=== PATIENT | female | born 1955 | race Caucasian/White ===

== ENCOUNTER → 2016-08-09 | Outpatient (CLI) | payer OTHER ==
[~2016-08-09] MED LIST: AZIT500T2 PO; BENZ100 PO; GUAI1LIQ13 PO; NAPR500T PO
[2016-08-09 07:16] LABS: MEAN CELL VOLUME 90.9 FL (80.0-100.0); MEAN CORPUSCULAR HGB CONC 34.1 % (32.0-36.0); PLATELET COUNT 187 TH/MM3 (150-450); RED BLOOD COUNT 4.62 MIL/MM3 (4.00-5.30); RED CELL DISTRIBUTION WIDTH 13.7 % (11.6-17.2); REVIEW FLAG FINAL; WHITE BLOOD COUNT 4.1 TH/MM3 (4.0-11.0)
[2016-08-09 07:37] LABS: BICARBONATE 25.3 MEQ/L (21.0-32.0); POTASSIUM 4.5 MEQ/L (3.5-5.1); RHEUMATOID FACTOR TRIGGER LESS THAN 10.0 IU/ML (0.0-14.9)
[2016-08-09 07:46] LABS: HDL CHOLESTEROL 67.1 MG/DL (40.0-60.0)
[2016-08-10 13:12] LABS: ANA SCREEN NEG (NEG)
== END ==
LOC: CLAB 06:51
PROVIDERS: ATTEND Family Medicine
DX: R63.5 Abnormal weight gain (principal); K64.9 Unspecified hemorrhoids; R19.7 Diarrhea, unspecified; M79.641 Pain in right hand; Z13.1 Encounter for screening for diabetes mellitus; Z11.59 Encounter for screening for other viral diseases; Z13.220 Encounter for screening for lipoid disorders
CPT/HCPCS: 36415; 80048; 80061; 84443; 85027; 86038; 86430; 86803

== ENCOUNTER → 2016-08-31 | Outpatient (CLI) | payer OTHER ==
[2016-08-31 15:48] LABS: HEMOGLOBIN A1a 1.4 %; HEMOGLOBIN A1b 1.7 %; HEMOGLOBIN Ao 84.6 %; HEMOGLOBIN LA1C 1.9 %; HEMOGLOBIN P3 3.6 %
== END ==
LOC: CLAB 07:44
PROVIDERS: ATTEND Family Medicine
DX: R73.09 Other abnormal glucose (principal)
CPT/HCPCS: 36415; 83036

== ENCOUNTER → 2016-12-07 | Outpatient (CLI) | payer OTHER ==
[2016-12-07 10:40] LABS: RHEUMATOID FACTOR TRIGGER LESS THAN 10.0 IU/ML (0.0-14.9)
== END ==
LOC: CLAB 08:38
PROVIDERS: ATTEND Internal Medicine Rheumatology
DX: M06.4 Inflammatory polyarthropathy (principal)
CPT/HCPCS: 36415; 85652; 86140; 86200; 86430

== ENCOUNTER → 2017-02-25 | Outpatient (CLI) | payer OTHER ==
[~2017-02-25] MED LIST changes: -NAPR500T PO; +NAPR500T2 PO
== END ==
LOC: CLAB 10:06
PROVIDERS: ATTEND Internal Medicine Rheumatology
DX: M05.89 Other rheumatoid arthritis with rheumatoid factor of multiple sites (principal)
CPT/HCPCS: 36415; 85652; 86140

== ENCOUNTER → 2017-04-16 | Outpatient (CLI) | payer OTHER ==
[2017-04-16 09:01] LABS: ALBUMIN 4.1 GM/DL (3.4-5.0); AST (GOT) 19 U/L (15-37); BICARBONATE 23.5 MEQ/L (21.0-32.0); BLOOD UREA NITROGEN 17 MG/DL (7-18); CALCIUM 9.1 MG/DL (8.5-10.1); CHLORIDE 110 MEQ/L (98-107); CREATININE 1.08 MG/DL (0.50-1.00); GLOMERULAR FILTRATION RATE 52 ML/MIN (>89); GLUCOSE,FASTING 93 MG/DL (74-99); SODIUM (NA) 142 MEQ/L (136-145)
[2017-04-16 09:02] LABS: ALT (GPT) 28 U/L (10-53); CHOLESTEROL 210 MG/DL (120-200)
[2017-04-16 09:05] LABS: ALKALINE PHOSPHATASE 62 U/L (45-117); HDL CHOLESTEROL 59.9 MG/DL (40.0-60.0); LDL CHOLESTEROL 116 MG/DL (0-99); TOTAL BILIRUBIN ADULT 1.1 MG/DL (0.2-1.0); TOTAL PROTEIN 7.2 GM/DL (6.4-8.2); TRIGLYCERIDES 169 MG/DL (42-150)
[2017-04-16 11:12] LABS: HEMOGLOBIN A1C 5.8 % (4.3-6.0)
== END ==
LOC: CLAB 08:05
PROVIDERS: ATTEND Family Medicine
DX: R73.03 Prediabetes (principal); Z68.28 Body mass index [BMI] 28.0-28.9, adult
CPT/HCPCS: 36415; 80053; 80061; 83036

== ENCOUNTER → 2017-07-08 | Outpatient (CLI) | payer OTHER | LOC: CLAB 07:12 | PROVIDERS: ATTEND Internal Medicine Rheumatology | DX: M06.4 Inflammatory polyarthropathy (principal) | CPT/HCPCS: 36415; 85652; 86140 ==

== ENCOUNTER 2017-07-16 07:15 | Emergency (ER) | payer OTHER ==
[~2017-07-16] VITALS: Ht 149.9 cm; Wt 64.0 kg
[2017-07-16 07:17] VITALS: BP 117/59; PULSE 85; RESP 16; TEMP 97.7; O2SAT 98
[2017-07-16] MEDS ORDERED: IBUPROFEN 800 MG TAB PO ONE (07:45)
--- NOTE | 2017-07-16 07:59 | RADRPT ---
EXAM DATE/TIME: 07/16/2017 07:48 [place] COMPARISON: No previous studies available for comparison. INDICATIONS : Fall/rolling injury. Right distal foot pain. MEDICAL HISTORY : None. SURGICAL HISTORY : None. ENCOUNTER: Initial ACUITY: 1 day PAIN SCORE: 10/10 LOCATION: Right foot, 2nd-4th MTPJ FINDINGS: Three view examination of the right foot demonstrates no soft tissue swelling, dislocation, or fractu re. The tarsal bones appear intact. The interphalangeal and metatarsophalangeal joints are intact. The calcaneus is intact. Bony mineralization is normal. CONCLUSION: 1. No acute fracture or dislocation. Elfego Ulloa MD on July 16, 2017 at 7:56 Board Certified Radiologist. This report was verified electronically.
[2017-07-16] MEDS ORDERED: IBUP1TAB7 PO (08:31)
--- NOTE | 2017-07-16 08:32 | PD ---
HPI Chief Complaint: Injury Time Seen by Provider: 07:27 Travel History International Travel<30 days: No Contact w/Intl Traveler<30days: No Traveled to known affect area: No History of Present Illness HPI 61-year-old female presents to the emergency department with complaint of right foot pain after slipping and falling on a wet floor here at [place]. 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 Denies chest pain, shortness of breath, abdominal pain, lightheadedness, dizziness, headache. Denies hitting her head or loss of consciousness. Denies anticoagulant therapy. Ambulated on the affected extremity after the fall, did a job up on the eighth for, and then walked to the ER for evaluation. Rates pain 10/10. Has not taken any medication or tried treatments to alleviate her symptoms. Worse with walking and palpation. Better at rest. Primary care provider is Dr. Jahaira Jackson. No known allergies. History of artery, osteoarthritis, CKD. Has no other medical complaints. No other modifying factors or associated signs and symptoms. PFSH Past Medical History Arthritis: Yes (RA, OA) Asthma: No Blood Disorders: No Heart Rhythm Problems: No Cancer: No Cardiovascular Problems: No High Cholesterol: No Chest Pain: No Congestive Heart Failure: No COPD: No Cerebrovascular Accident: No Diabetes: No Diminished Hearing: No Endocrine: No GERD: No Glaucoma: No Genitourinary: No Headaches: No Hepatitis: No Hiatal Hernia: No Herniated Disk: Yes (lumbar) Hypertension: No Immune Disorder: No Kidney Stones: No Musculoskeletal: No Neurologic: No Psychiatric: No Reproductive: No Respiratory: No Migraines: No Myocardial Infarction: No Renal Failure: No Seizures: No Sleep Apnea: No Thyroid Disease: No Ulcer: No Past Surgical History Abdominal Surgery: No Appendectomy: No Cardiac Surgery: No Cholecystectomy: Yes Ear Surgery: No Endocrine Surgery: No Eye Surgery: No Genitourinary Surgery: No Gynecologic Surgery: No Oral Surgery: No Pacemaker: No Thoracic Surgery: No Other Surgery: Yes (Neck Fusion 1991) Social History Alcohol Use: No Tobacco Use: No Substance Use: No Allergies-Medications (Allergen,Severity, Reaction): Coded Allergies: No Known Allergies (Verified Adverse Reaction, Unknown, 07/16/17) Reported Meds & Prescriptions Reported Meds & Active Scripts Active Walker/Adult/Folding (Device) 1 Mis Mis Ea .XX DIRECTED Ibuprofen 800 Mg Tab 800 Mg PO Q6HR PRN Review of Systems Except as stated in HPI: all other systems reviewed are Neg Physical Exam Narrative GENERAL: Well-nourished, well-developed femur patient, in no acute distress SKIN: Warm and dry. HEAD: Atraumatic. Normocephalic. EYES: Pupils equal and round. No scleral icterus. No injection or drainage. ENT: Mucosa pink and moist. Airway patent. NECK: Trachea midline. CARDIOVASCULAR: Regular rate. RESPIRATORY: No accessory muscle use. GASTROINTESTINAL: Flat. MUSCULOSKELETAL: Right foot without erythema, edema, ecchymosis; tenderness on palpation to the distal metatarsal region of the second, third, fourth toe; no obvious deformity. Right lower extremity supple and nontender with 2+ radial pulse and sensory intact without erythema or edema. No obvious deformities. No clubbing. No cyanosis. No edema. NEUROLOGICAL: Awake and alert. Oriented 3. No obvious cranial nerve deficits. Motor grossly within normal limits. Normal speech. PSYCHIATRIC: Appropriate mood and affect; insight and judgment normal. Data Data Last Documented VS Vital Signs Date Time Temp Pulse Resp B/P (MAP) Pulse Ox O2 Delivery O2 Flow Rate FiO2 07/16/17 07:17 97.7 85 16 117/59 (78) 98 Orders Orders Foot, Complete ([id number]) (07/16/17 07:31) Crutches (07/16/17 07:31) Ibuprofen (Motrin) (07/16/17 07:45) Ed Discharge Order (07/16/17 08:32) Splint Or Brace Apply/Monitor (07/16/17 08:32) [facility] Medical Decision Making Medical Screen Exam Complete: Yes Emergency Medical Condition: Yes Medical Record Reviewed: Yes Differential Diagnosis Foot sprain, foot fracture, foot injury Narrative Course 61-year-old female, [employer] employee, with right foot injury. Right foot x-ray ordered. Ibuprofen administered in the ER. Right foot x-ray concluded: Foot X-Ray 07/16/17730 Signed Impressions: Service Date/Time: Sunday, July 16, 2017 07:48 - CONCLUSION: 1. No acute fracture or dislocation. Elfego Ulloa MD Discussed x-ray findings with the patient. Patient attempted to use crutches and was unable to do so. We attempted to get a walker for the patient through case management and because it is a Workmen's Comp. claim we were unable to obtain a walker. We offered the patient a wheelchair escort to her vehicle and she declined. Patient was given a prescription for a walker and ibuprofen. Jet bandage provided for support. Instructed patient to follow-up with human resources for Workmen's Comp. follow-up. Instructed patient to follow up with primary care provider. Patient verbalizes understanding and agreement with treatment plan. Patient is medically cleared and stable for discharge. Discussed reasons to return to the emergency department. Patient agrees with treatment plan. The patients vital signs are stable and the patient is stable for outpatient follow-up and treatment. Patient discharged home, stable and in no acute distress. Diagnosis Primary Impression: Right foot injury Qualified Codes: S99.921A - Unspecified injury of right foot, initial encounter Referrals: Lynsey ([facility] [place]) Human Resources [employer] Worker Primary Care Physician Patient Instructions: Foot Sprain (ED), General Instructions Additional Instructions: Tylenol or ibuprofen as directed and as needed for pain and inflammation Rest, ice, compress, and elevate extremity to decrease pain and inflammation Jet bandage for compression and support Crutches for support Avoid aggravating activity; increase activity as tolerated Follow-up with primary care provider Follow-up with application chemist as needed Return to the emergency department immediately with worsening of symptoms Med/Other Pt SpecificInfo: Prescription(s) given Scripts Walker/Adult/Folding (Walker/Adult/Folding) 1 Mis Mis EA .XX DIRECTED, #1 0 Refills Prov: Kenzie Lehman 07/16/17 Ibuprofen (Ibuprofen) 800 Mg Tab 800 MG PO Q6HR Y for PAIN, #30 TAB 0 Refills Prov: Kenzie Lehman 07/16/17 Disposition: DISCHARGE HOME Condition: Stable Kenzie Lehman Jul 16, 2017 08:31
[2017-07-16] MEDS ORDERED: WALKER/ADULT/FO1 MIS (08:47)
== END 2017-07-16 09:20 | disposition home or self-care (01) ==
LOC: NEPD 07:15
DX: S99.921A Unspecified injury of right foot, initial encounter (principal); W01.0XXA Fall on same level from slipping, tripping and stumbling without subsequent striking against object, initial encounter; Y92.239 Unspecified place in hospital as the place of occurrence of the external cause
CPT/HCPCS: 73630; 99283; E0113

== ENCOUNTER → 2017-09-02 | Outpatient (CLI) | payer OTHER ==
[~2017-09-02] MED LIST changes: -AZIT500T2 PO; -BENZ100 PO; -GUAI1LIQ13 PO; +IBUP1TAB7 PO; -NAPR500T2 PO; +WALKER/ADULT/FO1 MIS
[2017-09-02 08:41] LABS: BICARBONATE 26.9 MEQ/L (21.0-32.0); CALCIUM 9.3 MG/DL (8.5-10.1); CREATININE 0.96 MG/DL (0.50-1.00)
== END ==
LOC: CLAB 07:54
PROVIDERS: ATTEND Family Medicine
DX: N18.3 Chronic kidney disease, stage 3 (moderate) (principal); Z11.59 Encounter for screening for other viral diseases
CPT/HCPCS: 36415; 80048; 86803